=== PATIENT | male | born 1965 | race Caucasian/White ===

== ENCOUNTER 2018-09-09 07:54 | Emergency (ER) | payer OTHER, SELFPAY ==
[2018-09-09] VITALS (15 sets, daily range): BP systolic 120–152; BP diastolic 71–90; PULSE 64–88; RESP 13–20; TEMP 36.7; O2SAT 96–100; BMI 21.5
--- NOTE | 2018-09-09 08:10 | DI.RAD.S_ITS ---
PROCEDURE: XR CHEST 1V INDICATIONS: chest pain TECHNIQUE: One view of the chest was acquired. COMPARISON: [facility], , CHEST 2 VIEW, 10/15/2016, 15:55. FINDINGS: Surgical changes and devices: None. Lungs and pleura: No pleural effusions or pneumothorax. Mildly increased interstitial lung markings are noted. No definite focal infiltrate. Mediastinum: Mediastinal contours appear normal. Heart size is normal. Bones and chest wall: No suspicious bony lesions. Overlying soft tissues appear unremarkable. IMPRESSION: Increased interstitial lung markings which may represent interstitial lung disease versus pneumonitis. No definite focal infiltrate. Dictated by: Chuck Smith M.D. on 09/09/2018 at 8:52 Approved by: Chuck Smith M.D. on 09/09/2018 at 8:56
[2018-09-09] MEDS: ALBUTEROL/IPRATROPIUM 3 ML AMPUL INH (08:15)
--- NOTE | 2018-09-09 08:36 | ED_ITS ---
HPI - Chest Pain General Chief Complaint: Chest Pain Stated Complaint: BILAT SHOULDER PAIN Time Seen by Provider: 09/09/18 08:05 Source: patient Mode of arrival: ambulatory Limitations: no limitations History of Present Illness HPI narrative: Patient is a 53-year-old male who presents with bilateral shoulder and chest pain. He says the every morning when he wakes up about 2 weeks. He feels like his chest is tight he can't breathe. It does seem to get better throughout the day. This morning he is just tired of it. He has no heart palpitations or dizziness. He has not had fever or productive cough. He is a smoker and does not go to the doctor. He takes no medication but and aspirin daily. Took 5 baby aspirin before he arrived this morning. MD complaint: chest pain Duration: improved Onset: during rest Quality: tightness Relieving factors: nothing Treatments prior to arrival chest pain: aspirin Related Data Home Medications Medication Instructions Recorded Confirmed No Known Home Medications 09/09/18 09/09/18 Allergies Allergy/AdvReac Type Severity Reaction Status Date / Time No Known Drug Allergies Allergy Verified 09/09/18 09:25 Review of Systems Review of Systems GENERAL: Denies chills, fatigue, malaise, fever, sweats, travel HEENT: Denies sinus pain, ear pain, sore throat, difficulty swallowing, neck pain RESPIRATORY: Denies dyspnea, cough, wheezing, hemoptysis, sputum. CARDIOVASCULAR: See HPI GASTROINTESTINAL: Denies nausea, vomiting, abdominal pain, diarrhea, constipation, melena. : Denies dysuria, frequency, incontinence, hematuria, urinary retention, flank pain. MUSCULOSKELETAL: Denies weakness, joint pain, or bony pain SKIN: No rash, no erythema, no pruritus NEUROLOGIC: Denies weakness, dizziness, headache, numbness, change in speech, confusion PSYCHIATRIC: No concerning psychosocial issues. 12 point review of systems is negative except for those stated above and HPI PFSH Family History Brother Age: 61 Heart disease Father Mental health disorder Stroke Mother Age: 85 Diabetes mellitus Social History Smoking Status: Current every day smoker Exam Initial Vital Signs Initial Vital Signs: Vital Signs Temperature 98.0 F 09/09/18 08:00 Pulse Rate 88 09/09/18 08:00 Respiratory Rate 18 09/09/18 08:00 Blood Pressure 152/90 H 09/09/18 08:00 Pulse Oximetry 100 09/09/18 08:00 GENERAL: Alert oriented cooperative HEENT: Head atraumatic,EOMI, pupils reactive CARDIOVASCULAR: Regular rate and rhythm without murmurs, rubs or gallops. RESPIRATORY: Breath sounds equal bilaterally, no wheezes rales or rhonchi. ABDOMEN: Soft, nontender. Normoactive bowel sounds all 4 quadrants. No guarding or rebound.s EXTREMITIES: Normal range of motion, no clubbing or edema. Neurovascularly intact NEUROLOGICAL: Alert and oriented x4.Normal gait and speech. Cranial nerves II through XII grossly intact. SKIN: Warm, dry, no laceration, no petechiae, no rashes or lesions. Course Orders Ordered: ED Orders 09/09/18 08:10 XR chest 1V Stat EKG-12 Lead Stat 09/09/18 08:27 B Type Natriuretic Peptide Stat Complete Blood Count AUTO DIFF Stat Comprehensive Metabolic Panel Stat Lipase Stat Partial Thromboplastin Time Stat Prothrombin Time INR Stat Troponin & CK Cardiac Panel Stat Troponin I Stat 09/09/18 10:35 Troponin I Stat Discontinued Medications Albuterol/Ipratropium (Duoneb) 3 ml INH NOW ONE Stop: 09/09/18 08:11 Last Admin: 09/09/18 08:15 Dose: 3 ml Nitroglycerin (Nitrostat) 0.4 mg SL NOW ONE Stop: 09/09/18 09:07 Last Admin: 09/09/18 09:22 Dose: 0.4 mg Vital Signs - 8 hr 09/09/18 08:00 09/09/18 08:35 09/09/18 09:00 Temperature 98.0 F Pulse Rate 88 82 80 Respiratory Rate 18 20 16 Blood Pressure 152/90 H Blood Pressure [Right Arm] 141/80 H 126/72 Pulse Oximetry 100 97 100 09/09/18 09:22 09/09/18 09:30 09/09/18 09:53 Temperature Pulse Rate 74 80 72 Respiratory Rate 13 Blood Pressure 148/82 H 125/74 Blood Pressure [Right Arm] 141/86 H Pulse Oximetry 98 09/09/18 10:00 09/09/18 10:30 09/09/18 11:00 Temperature Pulse Rate 74 71 87 Respiratory Rate 18 17 18 Blood Pressure Blood Pressure [Right Arm] 124/71 120/71 148/87 H Pulse Oximetry 100 100 99 09/09/18 11:32 09/09/18 12:00 09/09/18 12:30 Temperature 98.0 F Pulse Rate 64 68 69 Respiratory Rate 18 20 13 Blood Pressure Blood Pressure [Right Arm] 134/73 122/79 121/73 Pulse Oximetry 98 100 96 09/09/18 13:00 Temperature Pulse Rate 70 Respiratory Rate 16 Blood Pressure Blood Pressure [Right Arm] 121/76 Pulse Oximetry 100 MDM - Chest Pain Medical Records Data Attestation: I reviewed the patient's medical records. Lab Data Attestation: I reviewed the patient's lab results. Result diagrams: 09/09/18 08:27 09/09/18 08:27 Lab Results 09/09/18 09/09/18 09/09/18 Range/Units 08:27 08:27 08:27 WBC 6.4 (4.5-11.0) X10^3/uL RBC 4.82 (4.5-5.9) X10^6/uL Hgb 16.7 (13.5-17.5) g/dL Hct 47.2 (41-53) % MCV 98.0 (80-100) fL MCH 34.6 H (26-34) PG MCHC 35.3 (30-36) % RDW 14.0 (11.6-14.8) % Plt Count 239 (150-400) X10^3/uL Neut % (Auto) 59.3 (50-75) % Lymph % (Auto) 26.3 (25-40) % Avery % (Auto) 8.1 (3-14) % Eos % (Auto) 4.8 H (2-4) % Baso % (Auto) 1.5 (0-2) % Neut # (Auto) 3800 (0077-6963) /uL PT 10.8 (10.1-12.7) SECONDS INR 1.0 (0.9-1.3) APTT 30 (26.4-36.2) SECONDS Sodium 144 (137-145) mmol/L Potassium 4.1 (3.4-5.1) mmol/L Chloride 105 (98-107) mmol/L Carbon Dioxide 28 (22-32) mmol/L BUN 15 (9-20) mg/dL Creatinine 0.90 (0.66-1.25) mg/dL Estimated GFR > 60.0 (>60) mL/min BUN/Creatinine Ratio 16.7 (6-22) Glucose 92 (70-100) mg/dL Calcium 9.4 (8.4-10.2) mg/dL Total Bilirubin 0.6 (0.2-1.3) mg/dL AST 35 (17-59) IU/L ALT 25 (21-72) IU/L Alkaline Phosphatase 89 (38-126) U/L Total Creatine Kinase 66 (55-170) U/L CK-MB (CK-2) TNP CK-MB (CK-2) Rel Index TNP Troponin I 0.074 H (0.01-0.034) ng/mL B-Natriuretic Peptide < 100.0 (<100) Total Protein 8.2 (6.3-8.2) g/dL Albumin 4.4 (3.5-5.0) g/dL Globulin 3.8 (1.7-4.1) g/dL Albumin/Globulin Ratio 1.2 (1.0-2.8) Lipase 241 (23-300) U/L 09/09/18 09/09/18 Range/Units 08:27 10:35 WBC (4.5-11.0) X10^3/uL RBC (4.5-5.9) X10^6/uL Hgb (13.5-17.5) g/dL Hct (41-53) % MCV (80-100) fL MCH (26-34) PG MCHC (30-36) % RDW (11.6-14.8) % Plt Count (150-400) X10^3/uL Neut % (Auto) (50-75) % Lymph % (Auto) (25-40) % Avery % (Auto) (3-14) % Eos % (Auto) (2-4) % Baso % (Auto) (0-2) % Neut # (Auto) (4955-7072) /uL PT (10.1-12.7) SECONDS INR (0.9-1.3) APTT (26.4-36.2) SECONDS Sodium (137-145) mmol/L Potassium (3.4-5.1) mmol/L Chloride (98-107) mmol/L Carbon Dioxide (22-32) mmol/L BUN (9-20) mg/dL Creatinine (0.66-1.25) mg/dL Estimated GFR (>60) mL/min BUN/Creatinine Ratio (6-22) Glucose (70-100) mg/dL Calcium (8.4-10.2) mg/dL Total Bilirubin (0.2-1.3) mg/dL AST (17-59) IU/L ALT (21-72) IU/L Alkaline Phosphatase (38-126) U/L Total Creatine Kinase (55-170) U/L CK-MB (CK-2) CK-MB (CK-2) Rel Index Troponin I 0.076 H 0.085 H (0.01-0.034) ng/mL B-Natriuretic Peptide (<100) Total Protein (6.3-8.2) g/dL Albumin (3.5-5.0) g/dL Globulin (1.7-4.1) g/dL Albumin/Globulin Ratio (1.0-2.8) Lipase (23-300) U/L Urine Dip Bedside Urine Glucose Negative Bedside Urine Bilirubin - Negative Bedside Urine Ketone - Negative Urine Specific Cuddy 1.025 Bedside Urine Occult Blood +/- Bedside Urine pH 6.0 Bedside Urine Protein - Negative Bedside Urine Urobilinogen - Negative Bedside Urine Nitrite - Negative Bedside Urine Leukocytes - Negative Esterase Imaging Data Chest x-ray: Radiologist's impression: PROCEDURE: XR CHEST 1V INDICATIONS: chest pain TECHNIQUE: One view of the chest was acquired. COMPARISON: Merged with [facility], CHEST 2 VIEW, 10/15/2016, 15:55. FINDINGS: Surgical changes and devices: None. Lungs and pleura: No pleural effusions or pneumothorax. Mildly increased interstitial lung markings are noted. No definite focal infiltrate. Mediastinum: Mediastinal contours appear normal. Heart size is normal. Bones and chest wall: No suspicious bony lesions. Overlying soft tissues appear unremarkable. IMPRESSION: Increased interstitial lung markings which may represent interstitial lung disease versus pneumonitis. No definite focal infiltrate. Dictated by: Chuck Smith M.D. on 09/09/2018 at 8:52 Approved by: Chuck Smith M.D. on 09/09/2018 at 8:56 ECG Data Attestation: I personally reviewed and interpreted this ECG as follows: Prior ECG tracings: not available for review Interpretation: EKG 1.: Sinus rhythm rate [address] changes , T-wave inversion noted in aVL no ST changes and no priors to compare EKG 2.: Sinus rhythm rate 67 T-wave inversion noted in aVL unchanged no ST changes MDM Narrative Medical decision making narrative: 11:[address] Hopson hospitalist has been updated patient's symptoms and test results. She recommends that with writing indeterminate troponin patient be transferred to higher level of care with Cardiology back up and potential cardiac dairy laboratory technician if needed 12:00 p.m. I spoke with [place] doctor who has been updated on patient's symptoms. Unfortunately [facility] does not have any available beds recommends transferring to [facility] were [facility] 12:40 p.m. , at [facility] is been updated on patient's symptoms and test results happily accepts patient for transfer. Discharge Plan Departure Prescriptions: No Action No Known Home Medications RF: 0
[2018-09-09 08:37] LABS: Add Manual Diff / Slide Review NO; Basophils Percent Auto 1.5 % (0-2); Eosinophils Percent Auto 4.8 % (2-4); Hematocrit 47.2 % (41-53); Hemoglobin 16.7 g/dL (13.5-17.5); Lymphocytes Percent Auto 26.3 % (25-40); Mean Corpuscular HGB Conc 35.3 % (30-36); Mean Corpuscular Hemoglobin 34.6 PG (26-34); Monocytes Percent Auto 8.1 % (3-14); Neutrophils Absolute Auto 3800 /uL (3000-5900); Neutrophils Percent Auto 59.3 % (50-75); Platelet Count 239 X10^3/uL (150-400); Red Blood Cell Count 4.82 X10^6/uL (4.5-5.9); White Blood Cell Count 6.4 X10^3/uL (4.5-11.0)
[2018-09-09 08:41] LABS: Prothrombin Time 10.8 SECONDS (10.1-12.7)
[2018-09-09 08:44] LABS: PTT Partial Thromboplastin Tim 30 SECONDS (26.4-36.2)
[2018-09-09 08:45] LABS: Alanine Aminotransferase 25 IU/L (21-72); Albumin 4.4 g/dL (3.5-5.0); Albumin Globulin Ratio 1.2 (1.0-2.8); Alkaline Phosphatase 89 U/L (38-126); Aspartate Aminotransferase 35 IU/L (17-59); BUN Creatinine Ratio 16.7 (6-22); Bilirubin Total 0.6 mg/dL (0.2-1.3); Blood Urea Nitrogen 15 mg/dL (9-20); Calcium 9.4 mg/dL (8.4-10.2); Carbon Dioxide 28 mmol/L (22-32); Chloride 105 mmol/L (98-107); Creatine Kinase 66 U/L (55-170); Estimated Glomerular Filt Rate > 60.0 mL/min (>60); Globulin 3.8 g/dL (1.7-4.1); Glucose 92 mg/dL (70-100); HEMOLYSIS < 15 (0-50); Lipase 241 U/L (23-300); Potassium 4.1 mmol/L (3.4-5.1); Sodium 144 mmol/L (137-145); Total Protein 8.2 g/dL (6.3-8.2)
[2018-09-09 08:56] LABS: Troponin I 0.074 ng/mL (0.01-0.034)
[2018-09-09] MEDS: NITROGLYCERIN 0.4 MG SL TAB SL (09:22)
[2018-09-09 09:29] LABS: Troponin I 0.076 ng/mL (0.01-0.034)
[2018-09-09 09:32] LABS: B Type Natriuretic Peptide < 100.0 (<100)
[2018-09-09 11:20] LABS: Troponin I 0.085 ng/mL (0.01-0.034)
== END 2018-09-09 13:54 | disposition short-term general hospital (02) ==
PROVIDERS: Emergency Provider Emergency Medicine
DX: R07.89 Other chest pain (principal)
CPT/HCPCS: 36415; 36591; 71045; 80053; 81003; 82550; 83690; 83880; 84484; 85025; 85610; 85730; 93005; 99284; 99285

== ENCOUNTER → 2019-02-19 06:55 | Outpatient (CLI) | payer OTHER, SELFPAY ==
[2019-02-19 08:08] LABS: Hematocrit 39.4 % (41-53); Hemoglobin 13.3 g/dL (13.5-17.5); Mean Corpuscular HGB Conc 33.7 % (30-36); Mean Corpuscular Hemoglobin 32.9 PG (26-34); Mean Corpuscular Volume 97.9 fL (80-100); Platelet Count 226 X10^3/uL (150-400); Red Blood Cell Count 4.02 X10^6/uL (4.5-5.9); Red Cell Distribution Width 13.2 % (11.6-14.8); White Blood Cell Count 5.3 X10^3/uL (4.5-11.0)
[2019-02-19 08:27] LABS: Alanine Aminotransferase 54 IU/L (21-72); Albumin 4.1 g/dL (3.5-5.0); Albumin Globulin Ratio 1.3 (1.0-2.8); Alkaline Phosphatase 82 U/L (38-126); Aspartate Aminotransferase 50 IU/L (17-59); BUN Creatinine Ratio 18.9 (6-22); Bilirubin Total 0.6 mg/dL (0.2-1.3); Blood Urea Nitrogen 17 mg/dL (9-20); Carbon Dioxide 26 mmol/L (22-32); Chloride 104 mmol/L (98-107); Cholesterol 151 mg/dL (140-199); Estimated Glomerular Filt Rate > 60.0 mL/min (>60); Globulin 3.2 g/dL (1.7-4.1); Glucose 92 mg/dL (70-100); HDL Cholesterol 41 mg/dL (40-60); HEMOLYSIS < 15 (0-50); LDL Cholesterol Calculated 69 mg/dL (<100); Potassium 4.4 mmol/L (3.4-5.1); Sodium 139 mmol/L (137-145); Total Protein 7.3 g/dL (6.3-8.2); Triglycerides 205 mg/dL (35-150)
== END ==
PROVIDERS: Visit Provider Nurse Practitioner Family
DX: I25.10 Atherosclerotic heart disease of native coronary artery without angina pectoris (principal)
CPT/HCPCS: 36415; 80053; 80061; 85027

== ENCOUNTER → 2019-04-28 12:14 | Outpatient (CLI) | payer OTHER, SELFPAY ==
--- NOTE | 2019-04-28 | DI.US.S_ITS ---
PROCEDURE: US ARTERIAL DUPLEX LE BI INDICATIONS: PERIPHERAL ARTERY DISEASE TECHNIQUE: Color and pulse Doppler interrogation was performed of both lower extremity arterial systems, with image documentation. COMPARISON: None. FINDINGS: Right lower extremity: Common femoral artery: 193 cm/sec, with triphasic flow. Deep femoral artery: 379 cm/sec, with triphasic flow. Proximal superficial femoral artery: 131 cm/sec, with triphasic flow. Mid superficial femoral artery: 117 cm/sec, with triphasic flow. Distal superficial femoral artery: 81 cm/sec, with triphasic flow. Popliteal artery: 87 cm/sec, with triphasic flow. Posterior tibial artery: 84 cm/sec, with triphasic flow. Anterior tibial artery/dorsalis pedis: 50 cm/sec, with triphasic flow. Neville-scale imaging description: Scattered calcified atherosclerotic plaque Left lower extremity: Common femoral artery: 261 cm/sec, with triphasic flow. Deep femoral artery: 194 cm/sec, with triphasic flow. Proximal superficial femoral artery: 162 cm/sec, with triphasic flow. Mid superficial femoral artery: 129 cm/sec, with triphasic flow. Distal superficial femoral artery: 68 cm/sec, with triphasic flow. Popliteal artery: 70 cm/sec, with triphasic flow. Posterior tibial artery: 70 cm/sec, with triphasic flow. Anterior tibial artery/dorsalis pedis: 51 cm/sec, with triphasic flow. Neville-scale imaging description: Scattered calcified atherosclerotic plaque IMPRESSION: 1. Extensive, bilateral lower extremity arterial calcified plaque. 2. Hemodynamically significant short segment stenosis involving the right deep femoral artery. 3. No hemodynamically significant arterial stenosis involving the common femoral arteries, superficial femoral arteries, popliteal arteries or trifurcation vessels of the lower extremities bilaterally. Dictated by: Breanne Laura MD, PhD on 04/28/2019 at 13:53 Approved by: Breanne Laura MD, PhD on 04/28/2019 at 14:12
== END ==
PROVIDERS: Visit Provider Internal Medicine Cardiovascular Disease
DX: I70.203 Unspecified atherosclerosis of native arteries of extremities, bilateral legs (principal)
CPT/HCPCS: 93925

== ENCOUNTER 2019-05-07 13:30 | Emergency (ER) | payer OTHER, SELFPAY ==
[2019-05-07 13:35] VITALS: BP 138/86; PULSE 72; RESP 18; TEMP 36.4; O2SAT 100; BMI 20.7
--- NOTE | 2019-05-07 13:57 | DI.CT.S_ITS ---
PROCEDURE: CT HEAD/BRAIN WO CON INDICATIONS: block fell on head, on plavix, severe pain TECHNIQUE: Noncontrast 4.5 mm thick angled axial sections acquired from the foramen magnum to the vertex, with coronal and sagittal reformats. For radiation dose reduction, the following was used: automated exposure control, adjustment of mA and/or kV according to patient size. COMPARISON: None. FINDINGS: Image quality: Excellent. CSF spaces: Basal cisterns are patent. No extra-axial fluid collections. Ventricles are normal in size and shape. Brain: No midline shift. No intracranial masses or hemorrhage. Neville-white matter interface is normal. Skull and face: Calvarium and visualized facial bones are intact, without suspicious lesions. Soft tissue laceration of the superior scalp is identified. No definite radiopaque foreign bodies are evident. No underlying fractures are present. Sinuses: Visualized sinuses and mastoids are clear. IMPRESSION: 1. No acute intracranial hemorrhage. 2. Scalp laceration/hematoma without underlying fracture. Dictated by: Cricket Young M.D. on 05/07/2019 at 13:14 Approved by: Crickte Young M.D. on 05/07/2019 at 13:16
[2019-05-07] MEDS: TET,DIPH,PERTUSS(ACELL),VAC/PF 0.5 ML SYRINGE IM (14:11)
--- NOTE | 2019-05-07 14:55 | ED.WOUNDLAC ---
HPI - Wound/Laceration General Chief Complaint: Wound/Laceration Stated Complaint: cracked head open Time Seen by Provider: 05/07/19 13:38 Source: patient Mode of arrival: ambulatory Limitations: no limitations History of Present Illness HPI narrative: Patient is a 53-year-old male on Plavix presenting after head injury. He was at work moving a boat when a piece of wood fell hitting his head. No loss of consciousness no vomiting no neck pain no numbness or tingling. But is bleeding quite a bit. Onset (ago): minute(s) Location: scalp Place: work Patient tetanus UTD: No Context: accidental Associated symptoms: pain Related Data Home Medications Medication Instructions Recorded Confirmed atorvastatin 80 mg tablet 80 mg PO BEDTIME 12/11/18 05/07/19 lisinopril 5 mg tablet 5 mg PO BEDTIME tab 12/11/18 05/07/19 metoprolol succinate ER 25 mg 25 mg PO BEDTIME each 12/11/18 05/07/19 capsule sprinkle, ext. release 24 hr ticagrelor 90 mg tablet 90 mg PO BID 12/11/18 12/11/18 clopidogrel 75 mg PO DAILY 05/07/19 05/07/19 Allergies Allergy/AdvReac Type Severity Reaction Status Date / Time codeine AdvReac Mild Itching Verified 12/11/18 08:45 Review of Systems Review of Systems GENERAL: Denies chills, fatigue, malaise, fever, sweats, travel HEENT: Denies sinus pain, ear pain, sore throat, difficulty swallowing, neck pain RESPIRATORY: Denies dyspnea, cough, wheezing, hemoptysis, sputum. CARDIOVASCULAR: Denies chest pain, palpitations, orthopnea, edema GASTROINTESTINAL: Denies nausea, vomiting, abdominal pain, diarrhea, constipation, melena. : Denies dysuria, frequency, incontinence, hematuria, urinary retention, flank pain. MUSCULOSKELETAL: Denies weakness, joint pain, or bony pain SKIN: See HPI NEUROLOGIC: Denies weakness, dizziness, headache, numbness, change in speech, confusion PSYCHIATRIC: No concerning psychosocial issues. 12 point review of systems is negative except for those stated above and HPI [facility] Medical History Coronary artery disease (Chronic ~2018) Rheumatoid arthritis (Chronic ~1974) Vision disorder (Chronic) Surgical History Anesthesia (Resolved) History of angiography (Resolved ~2017) History of hand surgery (Resolved ~1979) Family History (Updated 12/04/16 @ 00:00 by Conversion Provider) Brother Age: 62 Heart disease Father Mental health disorder Stroke Mother Age: 86 Diabetes mellitus Social History Smoking Status: Current every day smoker quit status: considering quitting (At some point yes Patient reports he is not currently interested in medications to assist him with quitting. Declined smoking cessastion handout and counseling. ) second hand exposure: No alcohol intake: current (2 mixed drinks a day) substance use type: marijuana (smoke, very rarely) Family History Brother Age: 62 Heart disease Father Mental health disorder Stroke Mother Age: 86 Diabetes mellitus Social History Smoking Status: Current every day smoker quit status: considering quitting (At some point yes Patient reports he is not currently interested in medications to assist him with quitting. Declined smoking cessastion handout and counseling. ) second hand exposure: No alcohol intake: current (2 mixed drinks a day) substance use type: marijuana (smoke, very rarely) Exam Initial Vital Signs Initial Vital Signs: Vital Signs Temperature 97.6 F 05/07/19 13:35 Pulse Rate 72 05/07/19 13:35 Respiratory Rate 18 05/07/19 13:35 Blood Pressure 138/86 05/07/19 13:35 Pulse Oximetry 100 05/07/19 13:35 GENERAL: Well-appearing, well-nourished and in no acute distress. HEENT: Head 3 cm skin abrasion there is oozing from the area but no actual so suturable laceration. Bleeding is controlled after significant pressure. CARDIOVASCULAR: Regular rate and rhythm without murmurs, rubs or gallops. RESPIRATORY: Breath sounds equal bilaterally, no wheezes rales or rhonchi. EXTREMITIES: Normal range of motion, no clubbing or edema. Neurovascularly intact NEUROLOGICAL: Alert and oriented x4.Normal gait and speech. Cranial nerves II through XII grossly intact. Stitch Bonding Machine Tender strength equal bilaterally SKIN: 3 cm abrasion on scalp Course Orders Ordered: ED Orders 05/07/19 13:57 CT head/brain wo con Stat Discontinued Medications Diphtheria/Tetanus/Acell Pertussis (Adacel) 0.5 ml IM .ONCE ONE Stop: 05/07/19 13:58 Last Admin: 05/07/19 14:11 Dose: 0.5 ml Vital Signs - 8 hr 05/07/19 13:35 05/07/19 15:06 Temperature 97.6 F Pulse Rate 72 77 Respiratory Rate 18 Blood Pressure 138/86 128/77 Pulse Oximetry 100 98 MDM - Wound/Laceration Imaging Data CT scan - head: Radiologist's impression: PROCEDURE: CT HEAD/BRAIN WO CON INDICATIONS: block fell on head, on plavix, severe pain TECHNIQUE: Noncontrast 4.5 mm thick angled axial sections acquired from the foramen magnum to the vertex, with coronal and sagittal reformats. For radiation dose reduction, the following was used: automated exposure control, adjustment of mA and/or kV according to patient size. COMPARISON: None. FINDINGS: Image quality: Excellent. CSF spaces: Basal cisterns are patent. No extra-axial fluid collections. Ventricles are normal in size and shape. Brain: No midline shift. No intracranial masses or hemorrhage. Neville-white matter interface is normal. Skull and face: Calvarium and visualized facial bones are intact, without suspicious lesions. Soft tissue laceration of the superior scalp is identified. No definite radiopaque foreign bodies are evident. No underlying fractures are present. Sinuses: Visualized sinuses and mastoids are clear. IMPRESSION: 1. No acute intracranial hemorrhage. 2. Scalp laceration/hematoma without underlying fracture. Dictated by: Cricket Young M.D. on 05/07/2019 at 13:14 MDM Narrative Medical decision making narrative: Initially 1 staple was placed and then removed. He had quite a bit of pain with the staple placement, pain improved once it was removed. Patient actually did not require ashlyn the bleeding stopped with pressure. Discussed with him care and bleeding control if it should start bleeding again. Discharge Plan Departure Patient Disposition: Home Clinical Impression: Laceration of scalp Qualifiers: Encounter type: initial encounter Qualified Code(s): S01.01XA - Laceration without foreign body of scalp, initial encounter Discharge Date/Time: 05/07/19 15:06 Interventions: ED Discharge Assessment Last Done: 05/07/19 15:06 Instructions: DI for Minor Laceration Activity Restrictions/Additional Instructions: *You have been diagnosed with scalp abrasion *What to do: No sutures needed. If bleeding should resume all apply pressure and hold. May ice 20-30 minutes at a time. May apply Neosporin 1-2 times daily May wash care. Careful not to scrub too hard *Continue to take medications as directed Tylenol if needed for pain 1000 mg (max)every 6 hours *Follow up with your primary care provider in 2-3 days *Return to ER if you should have persistent bleeding confusion nausea O weakness numbness or tingling or any new, worsening or concerning symptoms Prescriptions: No Action Brilinta 90 mg tablet 90 mg PO BID RF: 0 atorvastatin 80 mg tablet 80 mg PO BEDTIME RF: 0 metoprolol succinate 25 mg werner chiu,ER 24hr dose pack 25 mg PO BEDTIME RF: 0 lisinopril 5 mg tablet 5 mg PO BEDTIME RF: 0 clopidogrel 75 mg tablet 75 mg PO DAILY RF: 0 Referrals: Katie Greenwood ARNP [Advanced Medical Lab Technologist] -
[2019-05-07 15:06] VITALS: BP 128/77; PULSE 77; O2SAT 98
== END 2019-05-07 15:06 | disposition home or self-care (01) ==
PROVIDERS: Emergency Provider Emergency Medicine
DX: S01.01XA Laceration without foreign body of scalp, initial encounter (principal); W20.8XXA Other cause of strike by thrown, projected or falling object, initial encounter; Y99.0 Civilian activity done for income or pay; Z23 Encounter for immunization
CPT/HCPCS: 12001; 70450; 90471; 99283; 99284; 90715

== ENCOUNTER → 2019-07-08 07:01 | Outpatient (CLI) | payer OTHER, SELFPAY ==
[2019-07-08 09:04] LABS: Add Manual Diff / Slide Review NO; Basophils Absolute Auto 100 /uL (0-100); Basophils Percent Auto 1.3 % (0-2); Eosinophils Absolute Auto 300 /uL (0-450); Eosinophils Percent Auto 4.8 % (2-4); Hematocrit 41.3 % (41-53); Hemoglobin 13.9 g/dL (13.5-17.5); Lymphocytes Absolute Auto 1900 /uL (1100-4500); Lymphocytes Percent Auto 27.2 % (25-40); Mean Corpuscular HGB Conc 33.7 % (30-36); Monocytes Absolute Auto 600 /uL (0-900); Monocytes Percent Auto 8.8 % (3-14); Neutrophils Absolute Auto 4000 /uL (1500-7000); Neutrophils Percent Auto 57.9 % (50-75); Platelet Count 247 X10^3/uL (150-400); Red Blood Cell Count 4.21 X10^6/uL (4.5-5.9); Red Cell Distribution Width 13.6 % (11.6-14.8)
[2019-07-08 09:22] LABS: BUN Creatinine Ratio 22.2 (6-22); Blood Urea Nitrogen 20 mg/dL (9-20); Calcium 9.6 mg/dL (8.4-10.2); Carbon Dioxide 27 mmol/L (22-32); Chloride 102 mmol/L (98-107); Cholesterol 172 mg/dL (140-199); Estimated Glomerular Filt Rate > 60.0 mL/min (>60); Glucose 93 mg/dL (70-100); HDL Cholesterol 50 mg/dL (40-60); HEMOLYSIS < 15 (0-50); LDL Cholesterol Calculated 89 mg/dL (<100); Potassium 4.4 mmol/L (3.4-5.1); Sodium 139 mmol/L (137-145); Triglycerides 164 mg/dL (35-150)
== END ==
PROVIDERS: Visit Provider Nurse Practitioner Family
DX: R71.0 Precipitous drop in hematocrit (principal); E78.2 Mixed hyperlipidemia; I25.10 Atherosclerotic heart disease of native coronary artery without angina pectoris
CPT/HCPCS: 36415; 80048; 80061; 85025

== ENCOUNTER → 2019-07-21 16:06 | Outpatient (CLI) | payer OTHER, SELFPAY ==
--- NOTE | 2019-07-21 16:09 | DI.US.S_ITS ---
PROCEDURE: US ABDOMEN COMPLETE INDICATIONS: NAUSEA AND VOMITING X MONTHS TECHNIQUE: Real-time scanning was performed of the abdominal and retroperitoneal organs, with image documentation. COMPARISON: None. FINDINGS: Liver: Liver is normal in size and homogeneous in echotexture. Gallbladder: The appears normal Biliary ducts: Intrahepatic bile ducts are non-dilated. Extrahepatic bile duct caliber measures 5.4 mm. Normal is 6-7 mm or less in diameter, or 10 mm or less post-cholecystectomy. Pancreas: Visualized portions of the pancreas are sonographically normal. Spleen: Spleen is normal in size and homogeneous in echotexture. Kidneys: Kidneys are normal in size and echotexture. Right kidney measures 9.9 cm long; left kidney measures 10.4 cm long. No hydronephrosis or nephrolithiasis. No solid masses. Aorta: Visualized aorta is normal in caliber at less than 3 cm. Iliacs: Proximal common iliac arteries are normal in caliber at less than 2.5 cm. IVC: Intrahepatic inferior vena cava is patent. Miscellaneous: No free abdominal fluid. IMPRESSION: Source of nausea and vomiting persisting over several months is not seen. Dictated by: Bo Chun M.D. on 07/21/2019 at 17:12 Approved by: Bo Chun M.D. on 07/21/2019 at 17:13
--- NOTE | 2019-07-21 16:11 | DI.RAD.S_ITS ---
PROCEDURE: XR ELBOW RT MIN 3V INDICATIONS: right elbow pain TECHNIQUE: 3 views of the elbow were acquired. COMPARISON: None. FINDINGS: Bones: No fractures or dislocations. No suspicious bony lesions. Soft tissues: No elbow joint effusion. No suspicious soft tissue calcifications. IMPRESSION: Normal for age, source of current elbow pain symptoms is not seen. Dictated by: Bo Chun M.D. on 07/21/2019 at 17:08 Approved by: Bo Chun M.D. on 07/21/2019 at 17:08
== END ==
PROVIDERS: PCP Student in an Organized Health Care Education/Training Program; Visit Provider Nurse Practitioner Family
DX: R11.2 Nausea with vomiting, unspecified (principal); M25.521 Pain in right elbow
CPT/HCPCS: 73080; 76700

== ENCOUNTER → 2020-08-16 07:24 | Outpatient (CLI) | payer OTHER, SELFPAY ==
[2020-08-16 09:09] LABS: Alanine Aminotransferase 26 IU/L (<50); Albumin Globulin Ratio 1.2 (1.0-2.8); Alkaline Phosphatase 87 U/L (38-126); Aspartate Aminotransferase 33 IU/L (17-59); BUN Creatinine Ratio 21.3 (6-22); Bilirubin Total 0.5 mg/dL (0.2-1.3); Blood Urea Nitrogen 20 mg/dL (9-20); Calcium 9.3 mg/dL (8.4-10.2); Carbon Dioxide 27 mmol/L (22-32); Chloride 109 mmol/L (98-107); Cholesterol 158 mg/dL (140-199); Estimated Glomerular Filt Rate > 60.0 mL/min (>60); Globulin 3.3 g/dL (1.7-4.1); Glucose 99 mg/dL (70-100); HDL Cholesterol 48 mg/dL (40-60); HEMOLYSIS < 15 (0-50); LDL Cholesterol Calculated 81 mg/dL (<100); Potassium 4.1 mmol/L (3.4-5.1); Sodium 139 mmol/L (137-145); Total Protein 7.3 g/dL (6.3-8.2); Triglycerides 146 mg/dL (35-150)
== END ==
PROVIDERS: PCP Nurse Practitioner Family; Referring Provider Internal Medicine Cardiovascular Disease; Visit Provider Internal Medicine Cardiovascular Disease
DX: E78.5 Hyperlipidemia, unspecified (principal)
CPT/HCPCS: 36415; 80053; 80061

== ENCOUNTER → 2021-01-03 06:59 | Outpatient (CLI) | payer OTHER, SELFPAY ==
[2021-01-03 08:40] LABS: Cholesterol 155 mg/dL (140-199); Triglycerides 231 mg/dL (35-150)
[2021-01-03 08:55] LABS: HDL Cholesterol 37 mg/dL (40-60); LDL Cholesterol Calculated 72 mg/dL (<100)
== END ==
PROVIDERS: PCP Nurse Practitioner Family; Referring Provider Internal Medicine Cardiovascular Disease; Visit Provider Internal Medicine Cardiovascular Disease
DX: I25.10 Atherosclerotic heart disease of native coronary artery without angina pectoris (principal)
CPT/HCPCS: 36415; 80061

== ENCOUNTER → 2021-11-05 08:48 | Outpatient (CLI) | payer OTHER, SELFPAY ==
--- NOTE | 2021-11-05 08:51 | DI.RAD.S_ITS ---
PROCEDURE: XR KNEE RT 3V INDICATIONS: RIGHT KNEE PAIN TECHNIQUE: 3 views of the knee were acquired. COMPARISON: None. FINDINGS: Bones: No fractures or dislocations. No suspicious bony lesions. There is mild medial femorotibial joint space narrowing seen, with associated remodeling changes including subchondral sclerosis and osteophyte formation along the jointline. Soft tissues: No joint effusion. No suspicious soft tissue calcifications. IMPRESSION: Mild degenerative changes are seen by plain film. If it would be helpful for clinical management decision making, please consider a dedicated, scheduled knee MRI for further evaluation (assuming that there is no contraindication). Dictated by: Peterson Lux M.D. on 11/05/2021 at 8:05 Approved by: Peterson Lux M.D. on 11/05/2021 at 8:05
== END ==
PROVIDERS: PCP Nurse Practitioner Family; Referring Provider Physician Assistant; Visit Provider Physician Assistant
DX: M25.561 Pain in right knee (principal)
CPT/HCPCS: 73562

== ENCOUNTER → 2021-11-08 09:22 | Outpatient (CLI) | payer OTHER, SELFPAY ==
[2021-11-08 10:22] LABS: Alanine Aminotransferase 24 IU/L (<50); Albumin 4.3 g/dL (3.5-5.0); Albumin Globulin Ratio 1.3 (1.0-2.8); Alkaline Phosphatase 87 U/L (38-126); Aspartate Aminotransferase 34 IU/L (17-59); BUN Creatinine Ratio 21.6 (6-22); Bilirubin Total 1.1 mg/dL (0.2-1.3); Blood Urea Nitrogen 21 mg/dL (9-20); Calcium 9.3 mg/dL (8.4-10.2); Carbon Dioxide 27 mmol/L (22-32); Chloride 108 mmol/L (98-107); Cholesterol 156 mg/dL (140-199); Estimated Glomerular Filt Rate > 60.0 mL/min (>60); Globulin 3.3 g/dL (1.7-4.1); Glucose 96 mg/dL (70-100); HDL Cholesterol 43 mg/dL (40-60); HEMOLYSIS < 15 (0-50); LDL Cholesterol Calculated 82 mg/dL (<100); Potassium 4.3 mmol/L (3.4-5.1); Sodium 137 mmol/L (137-145); Total Protein 7.6 g/dL (6.3-8.2); Triglycerides 156 mg/dL (35-150)
== END ==
PROVIDERS: PCP Nurse Practitioner Family; Referring Provider Internal Medicine Cardiovascular Disease; Visit Provider Internal Medicine Cardiovascular Disease
DX: I25.5 Ischemic cardiomyopathy (principal); E78.5 Hyperlipidemia, unspecified
CPT/HCPCS: 36415; 80053; 80061

== ENCOUNTER → 2022-07-09 08:18 | Outpatient (CLI) | payer OTHER, SELFPAY ==
[2022-07-09 09:56] LABS: Cholesterol 156 mg/dL (140-199); Creatine Kinase 45 U/L (55-170); HDL Cholesterol 39 mg/dL (40-60); LDL Cholesterol Calculated 81 mg/dL (<100); Triglycerides 178 mg/dL (35-150)
[2022-07-12 10:48] LABS: Aldolase 3.4 U/L (3.3-10.3)
== END ==
PROVIDERS: PCP Student in an Organized Health Care Education/Training Program; Referring Provider Internal Medicine Cardiovascular Disease; Visit Provider Internal Medicine Cardiovascular Disease
DX: E78.5 Hyperlipidemia, unspecified (principal)
CPT/HCPCS: 36415; 80061; 82085; 82550

== ENCOUNTER → 2023-04-30 06:54 | Outpatient (CLI) | payer OTHER, SELFPAY ==
[2023-04-30 10:24] LABS: Cholesterol 147 mg/dL (140-199); HDL Cholesterol 49 mg/dL (40-60); LDL Cholesterol Calculated 26 mg/dL (<100); Triglycerides 361 mg/dL (35-150)
== END ==
PROVIDERS: PCP Family Medicine; Referring Provider Nurse Practitioner Family; Visit Provider Nurse Practitioner Family
DX: I25.10 Atherosclerotic heart disease of native coronary artery without angina pectoris (principal); E78.5 Hyperlipidemia, unspecified
CPT/HCPCS: 36415; 80061

== ENCOUNTER 2023-10-08 11:28 | Emergency (ER) | payer OTHER, SELFPAY ==
[2023-10-08 11:35] VITALS: BP 127/70; PULSE 90; RESP 16; TEMP 36.7; O2SAT 98; BMI 21.5
--- NOTE | 2023-10-08 12:09 | DI.RAD.S_ITS ---
PROCEDURE: XR ANKLE LT MIN 3V INDICATIONS: L ankle and foot pain TECHNIQUE: 3 views of the ankle were acquired. COMPARISON: None. FINDINGS: Bones: No fractures or dislocations. Ankle mortise is normally aligned. No suspicious bony lesions. Soft tissues: No tibiotalar joint effusion. Achilles tendon appears normal. IMPRESSION: No acute bony abnormality or significant effusion. Dictated by: Kumar Walters M.D. on 10/08/2023 at 13:47 Approved by: Kumar Walters M.D. on 10/08/2023 at 13:48
--- NOTE | 2023-10-08 12:09 | DI.RAD.S_ITS ---
PROCEDURE: XR FOOT LT MIN 3V INDICATIONS: L ankle and foot pain TECHNIQUE: 3 views of the foot were acquired. COMPARISON: None. FINDINGS: Bones: No fractures or dislocations. Mild valgus angulation of the 1st MTP with medial bunion formation. Mild interphalangeal joint degeneration. Degenerative changes of the midfoot. No suspicious bony lesions. Soft tissues: No tibiotalar joint effusion. Achilles tendon appears normal. IMPRESSION: No acute bony abnormality. Dictated by: Kumar Walters M.D. on 10/08/2023 at 13:48 Approved by: Kumar Walters M.D. on 10/08/2023 at 13:49
--- NOTE | 2023-10-08 12:10 | ED_ITS ---
HPI - Extremity Problem <Tate Damico PA-C - Last Filed: 10/08/23 14:18> General Chief complaint: Extremity Problem,Nontraumatic Stated complaint: L ankle/foot pain and swelling Time Seen by Provider: 10/08/23 11:48 Source: patient Mode of arrival: Ambulatory History of Present Illness HPI Narrative: 58-year-old male with past medical history rheumatoid arthritis, CAD, status post coronary artery stent placements, current smoker, peripheral vascular disease presents to the ED with 1 month of worsening left foot and ankle pain. Patient states that the pain started spontaneously, denies any trauma. Patient states that his left ankle has been intermittently swelling up and becomes painful, making it difficult to bear weight on his foot. No particular aggravating or alleviating factors. Patient is concerned that he might have an exacerbation of peripheral vascular disease. Patient is on clopidogrel. Patient denies numbness, tingling, weakness. Patient denies fever, chills, chest pain, shortness of breath, nausea, vomiting, abdominal pain, right headedness, dizziness, syncope. Related Data Home Medications Medication Instructions Recorded Confirmed atorvastatin 80 mg tablet 80 mg PO BEDTIME 12/11/18 05/13/23 lisinopril 5 mg tablet 5 mg PO BEDTIME 12/11/18 05/13/23 metoprolol succinate 25 mg capsule 25 mg PO BEDTIME 12/11/18 05/13/23 sprinkle, ext. release 24 hr clopidogrel 75 mg tablet 75 mg PO DAILY 05/07/19 05/13/23 Previous Rx's Medication Instructions Recorded ondansetron HCl 4 mg tablet 4 mg PO Q8H PRN nausea and 07/09/19 (Zofran) vomiting #90 tabs Allergies Allergy/AdvReac Type Severity Reaction Status Date / Time codeine AdvReac Mild Itching Verified 05/13/23 07:55 Review of Systems <Tate Damico PA-C - Last Filed: 10/08/23 14:18> Constitutional Constitutional: Denies chills, Denies fatigue, Denies fever(s), Denies frequent falls, Denies lethargy and Denies weakness Eyes Eyes: Denies change in vision, Denies eye discharge, Denies irritation and Denies loss of vision ENT Ears, Nose, Mouth, and Throat: Denies change in voice, Denies dizziness, Denies neck pain, Denies sore throat and Denies throat swelling Cardiovascular Cardiovascular: Denies chest pain, Denies irregular heart rhythm, Denies lightheadedness, Denies palpitations, Denies dyspnea, Denies dyspnea on exertion and Denies orthopnea Respiratory Respiratory: Denies cough, Denies dyspnea, Denies dyspnea on exertion and Denies wheezing Gastrointestinal Gastrointestinal: Denies abdominal pain, Denies change in bowel habits, Denies diarrhea, Denies nausea and Denies vomiting Musculoskeletal Musculoskeletal: Denies neck pain and Denies numbness Comments: Left foot and ankle pain, swelling Integumentary/Breasts Skin/Breast: Denies pruritus, Denies erythema, Denies rash and Denies wounds Neurologic Neurologic: Denies behavioral changes, Denies confusion, Denies dizziness, Denies frequent falls, Denies loss of vision, Denies numbness and Denies weakness Psychiatric Psychiatric: Denies anxiety, Denies behavioral changes, Denies confusion, Denies depression, Denies homicidal ideation and Denies suicidal ideation Endocrine Endocrine: Denies fatigue, Denies flushing and Denies palpitations Hematologic/Lymphatic Hematologic/Lymphatic: Denies easy bruising Allergic/Immunologic Allergic/Immunologic: Denies urticaria, Denies throat swelling and Denies wheezing Patient History <Tate Damico PA-C - Last Filed: 10/08/23 14:18> Medical History Knee osteonecrosis Complex tear of medial meniscus of right knee as current injury Nausea and vomiting (08/2018) Vision disorder Rheumatoid arthritis (~1974) Coronary artery disease (~2017) Surgical History Anesthesia History of angiography (~2017) History of hand surgery (~1979) Family History Brother Age: 66 Heart disease Father Mental health disorder Stroke Mother Age: 90 Diabetes mellitus Social History Smoking Status: Current every day smoker quit status: considering quitting second hand exposure: No alcohol intake: current substance use type: marijuana Smoking Status: Current every day smoker tobacco type: cigarettes alcohol intake frequency: 0-2 drinks per day Substance Use Type: marijuana Exam <Tate Damico PA-C - Last Filed: 10/08/23 14:18> Narrative Exam Narrative: Const General:?cooperative, healthy appearing and comfortable [facility] Head:?normal to inspection Ears:?hearing grossly normal bilaterally Nose:?external nose normal Face and sinus:?normal facial exam and sinuses nontender Mouth:?oral mucosae normal Throat:?posterior oropharynx normal Eyes General:?appearance normal, both eyes and all related structures Neck Neck:?normal visual inspection and no lymphadenopathy noted Resp Effort & Inspection:?normal respiratory effort Auscultation:?clear to auscultation bilaterally Cardio Rate:?regular rate Rhythm:?regular rhythm Musculoskeletal There is no tenderness to palpation of the left ankle. There is mild tenderness to palpation to the base of the 2nd and 3rd metatarsal. No tenderness to the base of the 5th metatarsal. Pedal Pulses are intact. Skin is warm and perfused. Skin is intact. Patient appears neurovascularly intact. Neuro General:?patient alert, patient awake and patient oriented x3 Initial Vital Signs Initial Vital Signs: Vital Signs Temperature 98.1 F 10/08/23 11:35 Pulse Rate 90 10/08/23 11:35 Respiratory Rate 16 10/08/23 11:35 Blood Pressure 127/70 10/08/23 11:35 Pulse Oximetry 98 10/08/23 11:35 Oxygen Delivery Method Room Air 10/08/23 11:35 <Stacey Ugarte DO - Last Filed: 10/13/23 07:31> Initial Vital Signs Initial Vital Signs: Vital Signs Temperature 98.1 F 10/08/23 11:35 Pulse Rate 90 10/08/23 11:35 Respiratory Rate 16 10/08/23 11:35 Blood Pressure 127/70 10/08/23 11:35 Pulse Oximetry 98 10/08/23 11:35 Oxygen Delivery Method Room Air 10/08/23 11:35 Course <Tate Damico PA-C - Last Filed: 10/08/23 14:18> Orders Ordered: ED Orders 10/08/23 12:09 XR ankle LT min 3V Stat XR foot LT min 3V Stat Vital Signs Vital signs: Vital Signs - 8 hr 10/08/23 11:35 10/08/23 14:12 Temperature 98.1 F 98.9 F Pulse Rate 90 80 Respiratory Rate 16 18 Blood Pressure 127/70 111/61 Pulse Oximetry 98 98 Oxygen Delivery Method Room Air Room Air <Stacey Ugarte DO - Last Filed: 10/13/23 07:31> Orders Ordered: ED Orders 10/08/23 12:09 XR ankle LT min 3V Stat XR foot LT min 3V Stat Vital Signs Vital signs: Vital Signs - 8 hr 10/08/23 11:35 10/08/23 14:12 Temperature 98.1 F 98.9 F Pulse Rate 90 80 Respiratory Rate 16 18 Blood Pressure 127/70 111/61 Pulse Oximetry 98 98 Oxygen Delivery Method Room Air Room Air MDM - Extremity (Nontraumatic) <Tate Damico PA-C - Last Filed: 10/08/23 14:18> MDM Narrative Medical decision making narrative: 58-year-old male with past medical history rheumatoid arthritis, CAD, status post coronary artery stent placements, current smoker, peripheral vascular disease presents to the ED with 1 month of worsening left foot and ankle pain. Concern for fracture/dislocation versus musculoskeletal sprain/strain versus peripheral vascular disease versus other. Will obtain x-rays, reassess. X-rays negative for fracture/dislocation. Patient's symptoms likely due to a musculoskeletal sprain/strain versus peripheral vascular disease. However, patient is neurovascularly intact with good pedal pulses and and good perfusion. Discussed findings with patient. 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 ED return precautions were discussed with patient. Patient verbalized understanding. Medical records reviewed: Yes Discharge Plan Departure Patient Disposition: Home Clinical Impression: Ankle pain Qualifiers: Chronicity: unspecified Laterality: left Qualified Code(s): M25.572 - Pain in left ankle and joints of left foot Foot pain Qualifiers: Laterality: left Qualified Code(s): M79.672 - Pain in left foot Instructions: DI for Ankle Pain, DI for Foot Pain Activity Restrictions/Additional Instructions: You were evaluated in the ED today for left-sided ankle and foot pain. Your x- rays did not show any fractures or dislocation. It is likely that your pain is due to a musculoskeletal strain/sprain versus an exacerbation of your peripheral vascular disease. Please follow-up with Dr. Martinez and a vascular specialist for further evaluation. You may take Tylenol for pain. Return to the ED if you have worsening symptoms, numbness, tingling, weakness, chest pain, shortness of breath. Prescriptions: No Action atorvastatin 80 mg tablet 80 mg PO BEDTIME metoprolol succinate 25 mg werner chiu,MEGHAN 24hr dose pack 25 mg PO BEDTIME lisinopril 5 mg tablet 5 mg PO BEDTIME ondansetron HCl [Zofran] 4 mg tablet 4 mg PO Q8H PRN (Reason: nausea and vomiting) Qty: 90 0RF clopidogrel 75 mg tablet 75 mg PO DAILY Patient Comments: take 1 tablet by mouth once daily Referrals: Liliam Nelson DO [Primary Care Provider] - Stand Alone Forms: Patient Portal/API ED Sign-out <Stacey Ugarte DO - Last Filed: 10/13/23 07:31> Cosign ED Attending Rosamaria Attestation: I was available for consultation.
[2023-10-08 14:12] VITALS: BP 111/61; PULSE 80; RESP 18; TEMP 37.2; O2SAT 98
== END 2023-10-08 14:13 | disposition home or self-care (01) ==
PROVIDERS: Emergency Provider Student in an Organized Health Care Education/Training Program; PCP Family Medicine
DX: M79.672 Pain in left foot (principal); M25.572 Pain in left ankle and joints of left foot; Z79.899 Other long term (current) drug therapy
CPT/HCPCS: 73610; 73630; 99281; 99283

== ENCOUNTER → 2023-10-14 06:59 | Outpatient (CLI) | payer OTHER, SELFPAY ==
[2023-10-14 08:13] LABS: Hemoglobin A1C% w Est Avg Glu 5.5 % (4.0-6.0)
[2023-10-14 08:51] LABS: Prostate Specific Antigen Scrn 0.254 ng/mL (0.1-4.0)
[2023-10-14 08:52] LABS: Thyroid Stimulating Hormone 2.29 uIU/mL (0.47-4.68)
[2023-10-14 09:09] LABS: HIV 1 & 2 Ab/Ag 4th Gen Combo NEGATIVE (NEGATIVE); Hep C Virus Ab w/Reflex Quant NEGATIVE s/c (NEGATIVE)
== END ==
LOC: LAB 07:00
PROVIDERS: PCP Family Medicine; Referring Provider Internal Medicine Cardiovascular Disease; Visit Provider Internal Medicine Cardiovascular Disease
DX: Z00.00 Encounter for general adult medical examination without abnormal findings (principal); Z13.1 Encounter for screening for diabetes mellitus; Z12.5 Encounter for screening for malignant neoplasm of prostate; Z12.11 Encounter for screening for malignant neoplasm of colon; Z11.59 Encounter for screening for other viral diseases; E78.5 Hyperlipidemia, unspecified; Z53.20 Procedure and treatment not carried out because of patient's decision for unspecified reasons
CPT/HCPCS: 36415; 83036; 84443; 86803; 87389; G0103

== ENCOUNTER → 2023-11-04 06:54 | Outpatient (CLI) | payer OTHER, SELFPAY ==
--- NOTE | 2023-11-04 06:55 | DI.US.S_ITS ---
PROCEDURE: US ARTERIAL DUPLEX LE INDICATIONS: PAD/PAIN IN LEFT LOWER EXTREMITY TECHNIQUE: Color and pulse Doppler interrogation was performed of both lower extremity arterial systems, with image documentation. COMPARISON: [facility], ARTERIAL DUPLEX LE , 04/28/2019, 12:30. FINDINGS: Right lower extremity: Common femoral artery: 118 centimeters/second, triphasic Deep femoral artery: 97 centimeters/seconds, triphasic Proximal superficial femoral artery: 112 centimeters/seconds, triphasic Mid superficial femoral artery: 86 centimeters/seconds, triphasic Distal superficial femoral artery: 73 centimeters/seconds, triphasic Popliteal artery: 75 centimeters/seconds, triphasic Posterior tibial artery: 67 centimeters/seconds, triphasic Anterior tibial artery/dorsalis pedis: 54 centimeters/seconds, triphasic Neville-scale imaging description: No significant plaque seen Left lower extremity: Common femoral artery: 159 centimeters/seconds, triphasic Deep femoral artery: 85 centimeters/seconds, triphasic Proximal superficial femoral artery: 123 centimeters/seconds, triphasic Mid superficial femoral artery: 87 centimeters/seconds, triphasic Distal superficial femoral artery: 35 centimeters/seconds, triphasic Popliteal artery: 79 centimeters/seconds, triphasic Posterior tibial artery: 54 centimeters/seconds, triphasic Anterior tibial artery/dorsalis pedis: 90 centimeters/seconds, triphasic Neville-scale imaging description: No significant plaque seen IMPRESSION: No hemodynamically significant arterial stenosis or occlusion seen in the bilateral lower extremities. Dictated by: Kirt Strong M.D. on 11/04/2023 at 18:25 Approved by: Kirt Strong M.D. on 11/04/2023 at 18:28
== END ==
LOC: US 06:54
PROVIDERS: PCP Family Medicine; Referring Provider Internal Medicine Cardiovascular Disease; Visit Provider Internal Medicine Cardiovascular Disease
DX: I73.9 Peripheral vascular disease, unspecified (principal); M79.605 Pain in left leg
CPT/HCPCS: 93925

== ENCOUNTER → 2023-11-06 10:19 | Outpatient (CLI) | payer OTHER, SELFPAY ==
--- NOTE | 2023-11-06 10:21 | DI.US.S_ITS ---
PROCEDURE: US PERIPH VENOUS LOW EXTREM LT INDICATIONS: Pain in left leg TECHNIQUE: Real-time imaging, as well as color and pulse Doppler interrogation, were performed of the lower extremity deep veins from the inguinal ligament to the popliteal fossa, with documentation of the visualized calf veins. COMPARISON: None. FINDINGS: The common femoral, femoral, popliteal, and the visualized calf veins are normally compressible, and free of intraluminal thrombus. Color and pulse Doppler demonstrate normal phasic intraluminal flow. There is normal augmentation response to distal compression maneuver. IMPRESSION: No findings of lower extremity deep venous thrombosis. Dictated by: Peterson Lux M.D. on 11/06/2023 at 12:36 Approved by: Peterson Lux M.D. on 11/06/2023 at 12:36
== END ==
LOC: US 10:20
PROVIDERS: PCP Family Medicine; Referring Provider Internal Medicine Cardiovascular Disease; Visit Provider Internal Medicine Cardiovascular Disease
DX: M79.605 Pain in left leg (principal)
CPT/HCPCS: 93971

== ENCOUNTER → 2023-11-12 10:32 | Outpatient (CLI) | payer OTHER, SELFPAY ==
[2023-11-12 11:30] LABS: C-Reactive Protein Quant 0.6 mg/dL (<1.0); Uric Acid 6.7 mg/dL (3.5-8.5)
[2023-11-12 11:36] LABS: Vitamin D 25 Hydroxy (D3) 23.4 ng/mL (30.0-100.0)
[2023-11-12 12:50] LABS: Erythrocyte Sedimentation Rate 16 MM/HR (0-15)
== END ==
LOC: LAB 10:34
PROVIDERS: Orthopaedic Surgery Foot and Ankle Surgery; PCP Family Medicine; Referring Provider Family Medicine; Visit Provider Family Medicine
DX: M77.42 Metatarsalgia, left foot (principal); M84.375A Stress fracture, left foot, initial encounter for fracture; E55.9 Vitamin D deficiency, unspecified; M79.672 Pain in left foot
CPT/HCPCS: 36415; 82306; 84550; 85651; 86140

== ENCOUNTER → 2023-11-24 10:38 | Outpatient (CLI) | payer OTHER, SELFPAY ==
[2023-11-24 12:15] LABS: Alanine Aminotransferase 53 IU/L (<50); Albumin 4.3 g/dL (3.5-5.0); Albumin Globulin Ratio 1.3 (1.0-2.8); Alkaline Phosphatase 79 U/L (38-126); Aspartate Aminotransferase 39 IU/L (17-59); BUN Creatinine Ratio 20.8 (6-22); Bilirubin Total 0.8 mg/dL (0.2-1.3); Blood Urea Nitrogen 20 mg/dL (9-20); Calcium 9.7 mg/dL (8.4-10.2); Carbon Dioxide 25 mmol/L (22-32); Chloride 104 mmol/L (98-107); Estimated Glomerular Filt Rate > 60 mL/min (>60); Globulin 3.3 g/dL (1.7-4.1); Glucose 94 mg/dL (80-110); HEMOLYSIS < 15 (0-50); Potassium 3.8 mmol/L (3.4-5.1); Sodium 137 mmol/L (137-145); Total Protein 7.6 g/dL (6.3-8.2)
== END ==
LOC: LAB 10:40
PROVIDERS: PCP Family Medicine; Referring Provider Internal Medicine Cardiovascular Disease; Visit Provider Internal Medicine Cardiovascular Disease
DX: I73.9 Peripheral vascular disease, unspecified (principal); Z95.5 Presence of coronary angioplasty implant and graft
CPT/HCPCS: 36415; 80053

== ENCOUNTER → 2023-12-11 14:19 | Outpatient (CLI) | payer OTHER, SELFPAY | LOC: LAB 14:23 | PROVIDERS: PCP Family Medicine; Referring Provider Orthopaedic Surgery Foot and Ankle Surgery; Visit Provider Orthopaedic Surgery Foot and Ankle Surgery | DX: E55.9 Vitamin D deficiency, unspecified (principal); M77.42 Metatarsalgia, left foot; M84.30XA Stress fracture, unspecified site, initial encounter for fracture | CPT/HCPCS: 36415; 82306 ==

== ENCOUNTER → 2023-12-21 08:36 | Outpatient (CLI) | payer OTHER, SELFPAY ==
--- NOTE | 2023-12-21 08:37 | DI.MRI.S_ITS ---
PROCEDURE: MR ANKLE LT WO CON INDICATIONS: Joint derangement, unspecified TECHNIQUE: Noncontrast sagittal T1 spin echo and T2 fast spin echo with fat saturation, axial proton density fast spin echo and T2 fast spin echo with fat saturation, coronal T1 spin echo and T2 fast spin echo with fat saturation through the ankle/hindfoot. COMPARISON: [facility], CR, XR ANKLE LT MIN 3V, 10/08/2023, 12:24. [facility] MR, MR FOOT LEFT WITHOUT CONTRAST, 10/28/2023, 12:47. FINDINGS: Image quality: Diagnostic Bones and Joints: Tibiotalar joint: Mild degenerative changes. Moderate periarticular edema is present. [id number] joint effusion Midfoot and hindfoot: As seen on prior foot MRI, there is mild diffuse edema throughout the midfoot bones, also involving the base of the 4th and 1st metatarsals. Unable to discretely identified fracture line. This is slightly decreased compared to 10/28/2023. However, there is moderate edema adjacent to the subtalar facets in the talus and calcaneal bones, again without a discrete fracture line. Mild scattered degenerative changes are seen in the hindfoot and midfoot. Small subtalar and midfoot joint effusions are present Talar dome: No discrete defect. Mild to moderate edema is present. Medial Structures: Flexor tendons: Intact. Possible mild insertional tendinopathy at the posterior tibialis. There is fluid adjacent to the flexor hallucis tendon, at the level of the subtalar joint. Deltoid ligaments: Visualized deep and superficial layers are intact. Spring complex: Intact. Sinus tarsi: Preserved fat signal. Lateral Structures: Ligaments: ATFL, CF, and PTFL are intact. Syndesmosis: Tibiofibular ligaments are intact. Syndesmosis is not pathologically widened (2mm). Peroneus tendons: Mild insertional tendinopathy of the brevis and longus tendons. Anterior Structures: Extensor tendons: Intact. Plantar and Posterior Structures: Achilles: Intact. Plantar fascia: No pathologic edema. Muscles: No high-grade atrophy or intramuscular edema Other soft tissues: No abscess or measurable mass. IMPRESSION: Mild degenerative changes in the hindfoot, midfoot, tibiotalar joint. Diffuse periarticular edema and scattered joint effusions, particularly involving the subtalar facets and tibiotalar joint. These are increased in the hindfoot, slightly decreased in the midfoot compared to 10/28/2023, out of proportion to the degree of degenerative changes. Findings may represent inflammatory arthropathy or other nonspecific osteitis/arthritis. Infectious etiologies or trauma/contusions are possible, although diffuse joint involvement is atypical. Possible mild insertional tendinopathy of the posterior tibialis, and peroneus tendons. No high-grade tendinous or ligamentous defects otherwise elsewhere. Dictated by: Néstor Guerrero M.D. on 12/22/2023 at 11:34 Approved by: Néstor Guerrero M.D. on 12/22/2023 at 11:42
== END ==
PROVIDERS: PCP Family Medicine; Referring Provider Orthopaedic Surgery; Visit Provider Orthopaedic Surgery
DX: M24.872 Other specific joint derangements of left ankle, not elsewhere classified (principal); M25.472 Effusion, left ankle
CPT/HCPCS: 73721

== ENCOUNTER → 2023-12-26 06:57 | Outpatient (CLI) | payer OTHER, SELFPAY ==
[2023-12-26 08:07] LABS: Alanine Aminotransferase 41 IU/L (<50); Albumin 3.9 g/dL (3.5-5.0); Albumin Globulin Ratio 1.2 (1.0-2.8); Alkaline Phosphatase 83 U/L (38-126); Aspartate Aminotransferase 32 IU/L (17-59); BUN Creatinine Ratio 15.6 (6-22); Bilirubin Total 0.5 mg/dL (0.2-1.3); Blood Urea Nitrogen 14 mg/dL (9-20); C-Reactive Protein Quant 1.1 mg/dL (<1.0); Calcium 9.4 mg/dL (8.4-10.2); Carbon Dioxide 27 mmol/L (22-32); Chloride 110 mmol/L (98-107); Estimated Glomerular Filt Rate > 60 mL/min (>60); Globulin 3.2 g/dL (1.7-4.1); Glucose 83 mg/dL (80-110); HEMOLYSIS < 15 (0-50); Potassium 4.4 mmol/L (3.4-5.1); Sodium 141 mmol/L (137-145); Total Protein 7.1 g/dL (6.3-8.2); Uric Acid 5.9 mg/dL (3.5-8.5)
[2023-12-26 08:09] LABS: Erythrocyte Sedimentation Rate 10 MM/HR (0-15); Rheumatoid Factor 19.2 IU/mL (<12.0)
[2023-12-26 10:27] LABS: Hepatitis B Surface Antigen NEGATIVE s/c (NEGATIVE)
[2023-12-26 10:42] LABS: Hep C Virus Ab w/Reflex Quant NEGATIVE s/c (NEGATIVE)
[2023-12-31 08:40] LABS: Hepatitis Be Antibody Negative (Negative)
[2023-12-31 14:43] LABS: CCP Antibodies IgG/IgA >250 units (0-19)
[2024-01-01 12:52] LABS: QuantiFERON Mitogen Value >10.00 IU/mL (.); QuantiFERON Nil Value 0.02 IU/mL (.); QuantiFERON TB Gold Plus Negative (Negative); QuantiFERON TB1 Ag Value 0.02 IU/mL (.); QuantiFERON TB2 Ag Value 0.04 IU/mL (.)
== END ==
PROVIDERS: PCP Family Medicine; Referring Provider Internal Medicine Rheumatology; Visit Provider Internal Medicine Rheumatology
DX: M06.4 Inflammatory polyarthropathy (principal)
CPT/HCPCS: 36415; 80053; 84550; 85651; 86140; 86200; 86430; 86480; 86707; 86803; 87340

== ENCOUNTER → 2024-06-04 11:59 | Outpatient (CLI) | payer OTHER, SELFPAY ==
[2024-06-04 13:02] LABS: Add Manual Diff / Slide Review NO; Basophils Absolute Auto 100 /uL (0-100); Basophils Percent Auto 0.5 % (0-2); Eosinophils Absolute Auto 400 /uL (0-450); Eosinophils Percent Auto 2.7 % (2-4); Hematocrit 43.1 % (41-53); Hemoglobin 14.6 g/dL (13.5-17.5); Lymphocytes Absolute Auto 2200 /uL (1100-4500); Lymphocytes Percent Auto 14.6 % (25-40); Mean Corpuscular HGB Conc 33.9 % (30-36); Mean Corpuscular Hemoglobin 34.3 PG (26-34); Mean Corpuscular Volume 101.1 fL (80-100); Monocytes Absolute Auto 800 /uL (0-900); Monocytes Percent Auto 5.7 % (3-14); Neutrophils Absolute Auto 11500 /uL (1500-7000); Neutrophils Percent Auto 76.5 % (50-75); Platelet Count 266 X10^3/uL (150-400); Red Blood Cell Count 4.26 X10^6/uL (4.5-5.9); Red Cell Distribution Width 13.5 % (11.6-14.8)
[2024-06-04 13:15] LABS: Alanine Aminotransferase 41 IU/L (<50); Albumin 4.3 g/dL (3.5-5.0); Albumin Globulin Ratio 1.5 (1.0-2.8); Alkaline Phosphatase 104 U/L (38-126); Aspartate Aminotransferase 36 IU/L (17-59); BUN Creatinine Ratio 16.3 (6-22); Bilirubin Total 0.8 mg/dL (0.2-1.3); Blood Urea Nitrogen 16 mg/dL (9-20); Calcium 9.5 mg/dL (8.4-10.2); Carbon Dioxide 24 mmol/L (22-32); Chloride 105 mmol/L (98-107); Cholesterol 226 mg/dL (140-199); Estimated Glomerular Filt Rate > 60 mL/min (>60); Globulin 2.8 g/dL (1.7-4.1); Glucose 86 mg/dL (80-110); HDL Cholesterol 51 mg/dL (40-60); HEMOLYSIS < 15 (0-50); LDL Cholesterol Calculated 131 mg/dL (<100); Sodium 135 mmol/L (137-145); Total Protein 7.1 g/dL (6.3-8.2); Triglycerides 219 mg/dL (35-150)
[2024-06-04 13:42] LABS: TSH w/ Reflex to FT4 1.56 uIU/mL (0.47-4.68)
== END ==
PROVIDERS: PCP Family Medicine; Referring Provider Family Medicine; Visit Provider Family Medicine
DX: I25.10 Atherosclerotic heart disease of native coronary artery without angina pectoris (principal); Z95.5 Presence of coronary angioplasty implant and graft; F17.200 Nicotine dependence, unspecified, uncomplicated
CPT/HCPCS: 36415; 80053; 80061; 84443; 85025

== ENCOUNTER → 2024-06-25 07:50 | Outpatient (CLI) | payer OTHER, SELFPAY ==
--- NOTE | 2024-06-25 07:51 | DI.CT.S_ITS ---
PROCEDURE: CT LUNG LOW DOSE SCREENING INDICATIONS: Lung cancer screening TECHNIQUE: Noncontrast 2.0-2.5 mm thick sections acquired from the pulmonary apices to the posterior costophrenic angles. 7 mm thick axial MIP, and 5 mm coronal and sagittal reformats were then acquired. For radiation dose reduction, the following was used: automated exposure control, adjustment of mA and/or kV according to patient size. COMPARISON: None. FINDINGS: Image quality: Diagnostic. Lower Neck: No enlarged lymph nodes. Thyroid: No thyroid nodules which require sonographic follow up, per consensus guidelines. Axillae: No enlarged lymph nodes. Chest Wall: Unremarkable. Bones: No acute fractures. No aggressive appearing lytic or blastic osseous lesions. Lungs and Pleura: No pneumothorax or pleural effusions. Left apical pulmonary nodule versus nodular scar measuring 8 mm in short axis (3/52). Right upper lobe solid, noncalcified pulmonary nodule measuring 2 mm (3/130). Left upper lobe subcentimeter calcified granuloma. Bilateral lower lobe linear atelectasis/scar and dependent atelectasis. Subsegmental atelectasis in the middle lobe and lingula with traction bronchiectasis (3/215, 225). Patent central airways. Moderate apical predominant centrilobular and paraseptal emphysema. Heart: Heart size is normal. No pericardial effusion. Three-vessel coronary calcification, severe in the LAD. Thoracic Vessels: The aorta and pulmonary arteries demonstrate normal size. Left vertebral artery arises directly from the aortic arch, normal variant. Mediastinum and Kim: No enlarged lymph nodes. Query surgical clips. Esophagus: No wall thickening. No hiatal hernia. Upper Abdomen: Visualized upper abdomen solid organs and bowel loops appear normal. IMPRESSION: 1. Left apical pulmonary nodule versus nodular scar measuring 8 mm in short axis. LUNG-RADS 3; recommend repeat CT chest in 3 months 2. Three-vessel coronary calcification, severe in the LAD. Recommend cardiology consultation. 3. Moderate emphysema. Dictated by: Vinnie Meng M.D. on 06/25/2024 at 12:15 Approved by: Vinnie Meng M.D. on 06/25/2024 at 12:27
== END ==
LOC: CT 07:50
PROVIDERS: PCP Family Medicine; Referring Provider Family Medicine; Visit Provider Family Medicine
DX: Z12.2 Encounter for screening for malignant neoplasm of respiratory organs (principal); F17.210 Nicotine dependence, cigarettes, uncomplicated; J43.2 Centrilobular emphysema; I25.10 Atherosclerotic heart disease of native coronary artery without angina pectoris
CPT/HCPCS: 71271

== ENCOUNTER → 2024-10-22 09:38 | Outpatient (CLI) | payer OTHER, SELFPAY ==
--- NOTE | 2024-10-22 09:40 | DI.CT.S_ITS ---
PROCEDURE: CT CHEST WO CON INDICATIONS: evaluate lung nodule TECHNIQUE: Noncontrast 5 mm thick sections acquired from the pulmonary apices to the posterior costophrenic angles. 1 mm lung window, 5 mm thick coronal and sagittal and 7 mm axial MIP reformats were then acquired. For radiation dose reduction, the following was used: automated exposure control, adjustment of mA and/or kV according to patient size. COMPARISON: [facility], CT, CT LUNG LOW DOSE SCREENING, 06/25/2024, 7:54. FINDINGS: Image quality: Diagnostic. Lower Neck: No enlarged lymph nodes. Thyroid: No thyroid nodules which require sonographic follow up, per consensus guidelines. Axillae: No enlarged lymph nodes. Chest Wall: Unremarkable. Bones: No suspicious osseous lesion. Lungs and Pleura: No pneumothorax or pleural effusions. Moderate emphysematous change. A few small pulmonary nodules measuring 0.4 cm or less. A few calcified granuloma. Left apical pleural scarring is unchanged. Peripheral reticular thickening is similar. Heart: Heart size is normal. Three-vessel coronary artery calcifications. No pericardial effusion. Thoracic Vessels: The aorta and pulmonary arteries demonstrate normal size. Mediastinum and Kim: No enlarged lymph nodes. Esophagus: No wall thickening. No hiatal hernia. Upper Abdomen: Visualized upper abdomen solid organs and bowel loops appear normal. IMPRESSION: Suspected left apical pleural scarring is unchanged. Lung Rads 2. No new or enlarging pulmonary nodules. Recommend screening chest CT in 1 year. Dictated by: Shady Delgado M.D. on 10/22/2024 at 12:33 Approved by: Shady Delgado M.D. on 10/22/2024 at 12:53
== END ==
PROVIDERS: PCP Family Medicine; Referring Provider Family Medicine; Visit Provider Family Medicine
DX: R91.8 Other nonspecific abnormal finding of lung field (principal); I25.10 Atherosclerotic heart disease of native coronary artery without angina pectoris; F17.200 Nicotine dependence, unspecified, uncomplicated
CPT/HCPCS: 71250

== ENCOUNTER → 2024-11-09 09:25 | Outpatient (CLI) | payer OTHER, SELFPAY ==
[2024-11-09 10:56] LABS: Cholesterol 141 mg/dL (140-199); HDL Cholesterol 41 mg/dL (40-60); LDL Cholesterol Calculated 53 mg/dL (<100); Triglycerides 235 mg/dL (35-150)
== END ==
PROVIDERS: PCP Family Medicine; Referring Provider Nurse Practitioner Acute Care; Visit Provider Nurse Practitioner Acute Care
DX: E78.5 Hyperlipidemia, unspecified (principal)
CPT/HCPCS: 36415; 80061

== ENCOUNTER 2024-11-18 09:17 | Day surgery (SDC) | payer OTHER, SELFPAY ==
--- NOTE | 2024-11-18 | PATH_ITS ---
[facility] Accession Number: [id number] No. of containers..01 Tissue . 01 Material submitted: . rectum - RECTAL POLYPS . 01 Diagnosis: RECTAL POLYPS: Hyperplastic polyps. STO 11/22/2024 1214 Local . 01 Electronically signed: . Pierre Verduzco MD, Pathologist NPI- [id number] . 01 Gross description: . Received in formalin with two patient identifiers and rectal polyps, are three mauricio and brown soft tissue fragments, 0.7 x 0.9 cm in greatest dimension, submitted in A1. ([id number]) /MRV 11/22/2024 1214 Local . 01 Pathologist provided ICD-10: K62.1 . 01 CPT . 583319 Specimen Comment: A courtesy copy of this report has been sent to [phone] Performed at: [address] [id number] MD Pierre Verduzco MD Phone: [phone]
[2024-11-18] MEDS: LACTATED RINGERS 1,000 ML 42 ML IV (09:27)
[2024-11-18 09:43] VITALS: BP 126/81; PULSE 74; RESP 18; TEMP 36.1; O2SAT 96
--- NOTE | 2024-11-18 10:12 | P.HP_ITS ---
History of Present Illness History of Present Illness Date Patient Seen: 11/18/24 Time Patient Seen: 10:12 Chief complaint: Colonoscopy Narrative: Jimmie is a 59-year-old man here for a colonoscopy. This is his first. No family history of colon cancer that he knows of. [facility] Medical History (Updated 11/18/24 @ 10:13 by Bruno Recinos MD) Lung nodule Benign essential hypertension Mixed hyperlipidemia Rheumatoid arteritis Knee osteonecrosis Complex tear of medial meniscus of right knee as current injury Nausea and vomiting (08/2018) Vision disorder Rheumatoid arthritis (~1974) Coronary artery disease (~2017) Surgical History Anesthesia History of angiography (~2017) History of hand surgery (~1979) Family History Brother Age: 67 Heart disease Father Mental health disorder Stroke Mother Age: 91 Diabetes mellitus Social History Smoking Status: Current every day smoker quit status: considering quitting second hand exposure: No alcohol intake: current substance use type: marijuana Meds Home Medications and Allergies Home Medications Medication Instructions Recorded Confirmed Type atorvastatin 80 mg tablet 80 mg PO BEDTIME 12/11/18 11/18/24 History lisinopril 5 mg tablet 5 mg PO BEDTIME 12/11/18 11/18/24 History metoprolol succinate 25 mg capsule 25 mg PO BEDTIME 12/11/18 11/18/24 History sprinkle, ext. release 24 hr clopidogrel 75 mg tablet 75 mg PO DAILY 05/07/19 11/18/24 History ezetimibe 10 mg tablet 10 mg PO DAILY 06/11/24 11/18/24 History folic acid 1 mg tablet 1 mg PO DAILY 06/11/24 11/18/24 History methotrexate sodium 2.5 mg tablet 10 mg PO BID 06/11/24 11/18/24 History Allergies Allergy/AdvReac Type Severity Reaction Status Date / Time codeine AdvReac Mild Itching Verified 11/18/24 09:32 Exam Vital Signs (past 8 hours): - 11/18/24 09:43 Temperature 97 F L Pulse Rate 74 Respiratory Rate 18 Blood Pressure 126/81 Pulse Oximetry 96 Oxygen Delivery Method Room Air Oxygen Delivery Method Room Air Const General: No acute distress Resp Effort & Inspection: normal respiratory effort Assessment & Plan Assessment and plan (1) Colon cancer screening: Status: Acute Plan Colonoscopy Time-Based Coding :: [TOTAL MINUTES] spent with patient and on the chart (including review of chart, obtaining history, exam, reviewing outside data, placing orders, documenting exam and treatment plan, and counseling patient) on [DATE]. PROFEE Dietetic Intern Document charge(s): No
[2024-11-18 10:35] VITALS: BP 102/70; PULSE 72; RESP 16; TEMP 36.2; O2SAT 98
--- NOTE | 2024-11-18 10:38 | PM.OP.COLON ---
Operative Date/Time/Diagnoses Date of procedure: 11/18/24 Time of procedure: 10:38 Pre-op diagnosis: Colon cancer screening Post-op diagnosis: same Procedure & Clinicians Study performed: Colonoscopy Same procedure as scheduled: Yes Surgeon: Bruno Recinos Procedure Notes Procedure in detail: Surgeon: Bruno Recinos MD Anesthesia: Deyanira Lanza CRNA Procedure: The patient was brought to the endoscopy suite, placed in left lateral decubitus position. The patient was connected to monitoring devices. A time-out was performed. Sedation was administered. Once the patient was adequately sedated, a digital rectal exam was performed and was normal except for external hemorrhoids. The scope was then inserted and advanced to the cecum where the appendiceal orifice was identified and photographed. The scope was then slowly withdrawn over greater than 6 minutes. The mucosa was thoroughly inspected. There were 3 small polyps in the rectum removed with a cold snare and sent together. The scope was retroflexed in the rectum. Other abnormalities were found. The scope was straightened and removed. The patient was awakened and brought to recovery. Scope withdrawal time: 8 minutes Sedation time: 11 minute EBL: 2 mL Findings: 3 small rectal polyps, external Post-procedure Disposition: PACU
[2024-11-18 10:40] VITALS: BP 110/77; PULSE 70; RESP 16; O2SAT 100
[2024-11-18 10:45] VITALS: BP 110/77
== END 2024-11-18 11:03 | disposition home or self-care (01) ==
PROVIDERS: PCP Family Medicine; Referring Provider Surgery; Visit Provider Surgery
PROC: 0DJD8ZZ Inspection of Lower Intestinal Tract, Via Natural or Artificial Opening Endoscopic (ICD-10-PCS; CPT 45378; principal; 2024-11-18 10:30)
DX: Z12.11 Encounter for screening for malignant neoplasm of colon (principal); K64.4 Residual hemorrhoidal skin tags; K62.1 Rectal polyp
CPT/HCPCS: 45385; J2704

== ENCOUNTER → 2024-12-29 09:40 | Outpatient (CLI) | payer OTHER, SELFPAY ==
--- NOTE | 2024-12-29 16:52 | DI.NM.S_ITS ---
DATE OF SERVICE: 12/29/2024 EXERCISE PERFUSION STUDY INDICATION: Known history of coronary artery disease with occluded mid RCA, status post PCI of circ, CAD, left arm numbness. RADIOPHARMACEUTICAL: 25.9 millicurie technetium-99m Myoview IV was injected at stress and 11.6 millicurie technetium-99m Myoview IV was injected at rest. CARDIAC STRESS: The patient underwent exercise perfusion study under the supervision of an attending staff. He walked on Maik protocol for 7 minutes and 15 seconds, achieved maximum heart rate of 151 which was 95% of target heart rate. 8.1 METS of workload. MACKENZIE positive 12%. Baseline rhythm sinus. During stress, no convincing ischemic changes seen. No significant arrhythmias. Resting blood pressure 110/78 and peak blood pressure 144/70 mmHg. No chest pain. The patient felt fatigue and some dyspnea. RAW DATA: There is increased subdiaphragmatic activity and gut shadow near the inferior border of the heart. GATED STUDY: Resting LV ejection fraction 63% and stress LV ejection fraction 72% without any obvious wall motion abnormalities. Resting end- diastolic volume 110 mL. TID ratio 0.73 which is within normal limits. Lung/heart ratio 0.41 which is within normal limits. MYOCARDIAL PERFUSION SCAN: Stress supine, resting supine, and stress prone images were compared to each other. 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 Overall, preserved left ventricular function. Diminished exercise tolerance. Normal hemodynamic response. No ischemic EKG changes. No anginal symptoms. Left ventricular function preserved. Overall, low-risk myocardial perfusion scan. Jimmie Hermosillo - BECCA/angelica/SMITH doc#: [id number]/job#: [id number] dd: 12/29/2024 16:23:00 dt: 12/29/2024 16:31:00 DICTATING MD/COPIES TO: Dmitry Martinez MD COPIES MNE: LELE;
== END ==
PROVIDERS: PCP Family Medicine; Referring Provider Internal Medicine Cardiovascular Disease; Visit Provider Internal Medicine Cardiovascular Disease
DX: R20.0 Anesthesia of skin (principal); Z95.5 Presence of coronary angioplasty implant and graft; R94.39 Abnormal result of other cardiovascular function study
CPT/HCPCS: 78452; 93017; A9502

== ENCOUNTER → 2025-04-12 13:05 | Outpatient (CLI) | payer OTHER, SELFPAY ==
--- NOTE | 2025-04-12 13:06 | DI.RAD.S_ITS ---
PROCEDURE: XR KNEE RT 3V INDICATIONS: r/o OA, Fx TECHNIQUE: 3 views of the knee were acquired. COMPARISON: [facility], CR, XR KNEE RT 3V, 11/05/2021, 8:45. FINDINGS: Bones: Mild indentation of the lateral tibial plateau. Soft tissues: No joint effusion. No suspicious soft tissue calcifications. IMPRESSION: Mild indentation of the lateral tibial plateau, which could represent fracture. However, there is no substantial joint effusion. Consider evaluation with cross- sectional imaging. Dictated by: Neri Yun M.D. on 04/12/2025 at 13:33 Approved by: Neri Yun M.D. on 04/12/2025 at 13:34
== END ==
PROVIDERS: PCP Family Medicine; Referring Provider Chiropractor; Visit Provider Chiropractor
DX: S86.911A Strain of unspecified muscle(s) and tendon(s) at lower leg level, right leg, initial encounter (principal); X58.XXXA Exposure to other specified factors, initial encounter
CPT/HCPCS: 73562

== ENCOUNTER → 2025-04-22 11:55 | Outpatient (CLI) | payer OTHER, SELFPAY ==
--- NOTE | 2025-04-22 11:56 | DI.CT.S_ITS ---
PROCEDURE: CT KNEE RIGHT WITHOUT CON INDICATIONS: Right Knee Pain TECHNIQUE: Noncontrast 1-1.5 mm axial sections acquired from the mid-patella to the proximal tibia, with coronal and sagittal reformats. For radiation dose reduction, the following was used: automated exposure control, adjustment of mA and/or kV according to patient size. COMPARISON: [facility], CR, XR KNEE RT 3V, 04/12/2025, 13:07. FINDINGS: Image quality: Excellent. Bones: Subtle nondepressed comminuted fracture involving the anterior aspect of the lateral tibial plateau. No significant step-off is seen at the articular surface. There is prominent generalized bony demineralization. [id number] tricompartmental joint space narrowing with small marginal osteophytes. No additional fracture identified. Soft tissues: No significant joint effusion. Trace medial popliteal cyst. The articular cartilages, menisci, ligaments, tendons are not well evaluated with CT. The visualized musculature is age-appropriate in bulk. IMPRESSION: Subtle comminuted nondepressed intra-articular fracture of the lateral tibial plateau. No significant step-off at the articular surface. No joint effusion. Approved by: Robin Saavedra M.D. on 04/22/2025 at 21:17
== END ==
PROVIDERS: PCP Family Medicine; Referring Provider Orthopaedic Surgery; Visit Provider Orthopaedic Surgery
DX: S82.141A Displaced bicondylar fracture of right tibia, initial encounter for closed fracture (principal); M25.561 Pain in right knee
CPT/HCPCS: 73700